=== PATIENT | female | born 1985 | race Caucasian/White ===

== ENCOUNTER 2017-08-02 08:53 | Emergency (ER) | payer OTHER ==
[~2017-08-02] VITALS: Ht 165.1 cm; Wt 81.6 kg
[~2017-08-02 08:53] MED LIST: ALBUTEROL0.09 MG/A2 INH; ANUSOL HC-11% TP; AVPAK AZITHROM250 MG PO; CLINDAMYCIN150 MG PO; DAYPRO600 M1 PO; KEFLEX500 MG PO; MOTRIN IB200 MG PO; NKHM; PREDNICOT20 MG PO; PREDNISONE20 MG PO; ROBITUSSIN AC 110 ML PO; ROBITUSSIN DM 105 ML PO; TRAMADOL HCL50 MG PO; ULTRAM50 MG PO; VICODIN 5/500 505 MG PO; ZITHROMAX Z PA250 MG PO; ZITHROMAX250 MG PO
[2017-08-02] MEDS ORDERED: ABILIFY30 MG PO (08:59)
[2017-08-02] MEDS ORDERED: BIRTH CONTROL (09:00)
[2017-08-02] MEDS ORDERED: ZITHROMAX250 MG PO (10:25)
[2017-08-02] MEDS ORDERED: MEDROL DOSEPAK4 MG PO (10:25)
[2017-08-02] MEDS ORDERED: TESSALON PERLE100 M1 PO (10:25)
== END 2017-08-02 10:37 | disposition home or self-care (01) ==
LOC: ED 08:53
DX: J40 Bronchitis, not specified as acute or chronic (principal); F17.200 Nicotine dependence, unspecified, uncomplicated; Z79.899 Other long term (current) drug therapy; Z88.0 Allergy status to penicillin

== ENCOUNTER 2020-10-22 15:43 | Emergency (ER) | payer OTHER ==
[~2020-10-22] VITALS: Ht 165.1 cm; Wt 68.0 kg
[~2020-10-22 15:43] MED LIST changes: +ABILIFY30 MG PO; +BIRTH CONTROL; +MEDROL DOSEPAK4 MG PO; +TESSALON PERLE100 M1 PO
[2020-10-22] MEDS ORDERED: ELIMITE 5%60 GM T (16:15)
== END 2020-10-22 16:08 | disposition home or self-care (01) ==
LOC: ED 15:43
DX: B86 Scabies (principal); Z88.0 Allergy status to penicillin; Z79.899 Other long term (current) drug therapy; Z79.2 Long term (current) use of antibiotics; Z96.22 Myringotomy tube(s) status

== ENCOUNTER 2022-03-22 15:43 | Emergency (ER) | payer OTHER ==
[~2022-03-22] VITALS: Wt 68.0 kg
[~2022-03-22 15:43] MED LIST changes: +ELIMITE 5%60 GM T
== END 2022-03-22 19:53 | disposition left against medical advice (07) ==
LOC: ED 15:43
DX: S82.111A Displaced fracture of right tibial spine, initial encounter for closed fracture (principal); Z88.0 Allergy status to penicillin; Z79.899 Other long term (current) drug therapy; Z90.89 Acquired absence of other organs; W17.2XXA Fall into hole, initial encounter; Y93.89 Activity, other specified; Y92.89 Other specified places as the place of occurrence of the external cause; Y99.8 Other external cause status

== ENCOUNTER 2023-01-09 18:46 | Emergency (ER) | payer SELFPAY ==
[~2023-01-09] VITALS: Ht 165.1 cm; Wt 80.3 kg
== END 2023-01-09 20:53 | disposition left against medical advice (07) ==
LOC: ED 18:46
DX: R21 Rash and other nonspecific skin eruption (principal); L97.529 Non-pressure chronic ulcer of other part of left foot with unspecified severity; Z88.0 Allergy status to penicillin

== ENCOUNTER 2023-01-24 07:44 | Emergency (ER) | payer SELFPAY ==
[~2023-01-24] VITALS: Wt 77.1 kg
[2023-01-24] MEDS ORDERED: PREDNISONE50 MG PO (10:16)
== END 2023-01-24 10:18 | disposition home or self-care (01) ==
LOC: ED 07:44
DX: M79.672 Pain in left foot (principal); Z88.0 Allergy status to penicillin; Z79.899 Other long term (current) drug therapy; Z79.2 Long term (current) use of antibiotics; Z96.22 Myringotomy tube(s) status